=== PATIENT | female | born 1970 | race Caucasian/White ===

== ENCOUNTER 2019-03-24 02:23 | Emergency (ER) | payer OTHER ==
[~2019-03-24] VITALS: Ht 152.4 cm; Wt 70.4 kg
[~2019-03-24 02:23] MED LIST: AMOX1TAB10 PO; IBUP-1541 PO
[2019-03-24 02:27] VITALS: BP 166/98; PULSE 72; RESP 22; Ht 152.4 cm; Wt 70.4 kg
== END 2019-03-24 03:05 | disposition home or self-care (01) ==
LOC: FTE 02:23
DX: H92.02 Otalgia, left ear (principal)
CPT/HCPCS: 99283